=== PATIENT | female | born 1995 | race Caucasian/White ===

== ENCOUNTER 2024-10-23 20:05 | Inpatient (IN) | payer BC, SELFPAY ==
[2024-10-23 20:18] VITALS: BP 125/87; BMI 24.8
[2024-10-23] MEDS: LR 1000 IV (20:25)
[2024-10-23 20:47] LABS: % Basophils 0.2 % (0-2); % Eosinophils 0.2 % (0-6); % Immature Granulocytes 0.3 % (0-0.5); % Lymphocytes 8.3 % (20.5-51.1); % Monocytes 3.6 % (1.7-9.3); % Neutrophils 87.4 % (42.2-75.2); Absolute Monocytes 0.4 10^3/uL (0.1-0.6); Absolute Neutrophils 10.6 10^3/uL (1.4-6.5); Hematocrit 34.1 % (37.0-47.0); Mean Corp Hgb Conc. 35.2 g/dL (33.0-37.0); Mean Corpuscular Hgb 29.8 pg (27.0-31.0); Mean Corpuscular Volume 84.6 fL (81.0-99.0); Mean Platelet Volume 10.2 fL (7.4-10.4); Nucleated Red Blood Cells % 0 %; Platelet Count 188 10^3/uL (130-400); Red Blood Cell Count 4.03 10^6/uL (4.20-5.40); Red Cell Dist. Width 13.1 % (11.5-14.5); White Blood Cell Count 12.1 10^3/uL (4.8-10.8)
[2024-10-23] MEDS: FENTANYL/BUPIVACAINE 100 EPIDURAL (21:42)
[2024-10-23] MEDS: SUBLIMAZE 100 MCG EPIDURAL (21:47)
[2024-10-24 06:31] LABS: Hematocrit 32.7 % (37.0-47.0); Hemoglobin 11.5 g/dL (12.0-16.0)
[2024-10-24 07:20] LABS: Hepatitis B Surface Antigen Negative (Negative)
[2024-10-24 07:37] LABS: Hepatitis B Surface Antibody Positive; Hepatitis C Antibody Negative (Negative)
[2024-10-24] MEDS: PRENATAL PLUS PO (08:09)
[2024-10-24 12:18] LABS: Syphilis/T. pallidum Ab Reflex Negative (Negative)
[2024-10-24 13:40] LABS: HIV Combo Negative (Negative)
[2024-10-25] MEDS: MOTRIN 600 MG PO (04:47)
[2024-10-25] MEDS: PRENATAL PLUS 1 TABLET PO (08:41)
[2024-10-25] MEDS: SENOKOT-S 1 TABLET PO (08:44)
== END 2024-10-25 12:21 | disposition home or self-care (01) | DRG 807 ==
LOC: LDRP 20:05
PROVIDERS: Emergency Medicine; Obstetrics & Gynecology; ADMITTING PHYSICIAN Obstetrics & Gynecology
PROC: 10907ZC Drainage of Amniotic Fluid, Therapeutic from Products of Conception, Via Natural or Artificial Opening (ICD-10-PCS; 2024-10-23)
PROC: 10E0XZZ Delivery of Products of Conception, External Approach (ICD-10-PCS; 2024-10-24)
DX: O77.0 Labor and delivery complicated by meconium in amniotic fluid (principal); Z37.0 Single live birth; Z3A.39 39 weeks gestation of pregnancy
CPT/HCPCS: 88307; 85014; 85018; 85025; 86706; 86780; 86803; 86850; 86900; 86901; 87340; 87389